=== PATIENT | female | born 1950 ===

== ENCOUNTER 2017-04-20 14:29 | Emergency (ER) | payer SELFPAY ==
[2017-04-20 14:38] VITALS: BP 149/73; PULSE 71; RESP 16; TEMP 98; O2SAT 97
--- NOTE | 2017-04-20 15:21 | ED PDOC ---
HPI: General Adult Time Seen by Provider: 04/20/17 14:38 Chief Complaint (Nursing): Back Pain Chief Complaint (Provider): Neck Pain History Per: Patient History/Exam Limitations: no limitations Onset/Duration Of Symptoms: Days (2 days ago) Current Symptoms Are (Timing): Still Present Additional Complaint(s): 67 y/o female presents to the ED complaining of right earache that radiates into her neck and head, onset of 2 days. She reports of similar symptoms when she was diagnosed with an ear infection in the past. She also states that during her visit for the ear infection, she had blood work done and was told that she was negative for diabetes. She denies hearing changes, trauma, or fever. Past Medical History Reviewed: Historical Data, Nursing Documentation, Vital Signs Vital Signs: Last Vital Signs Temp 98.0 F 04/20/17 14:35 Pulse 71 04/20/17 14:35 Resp 16 04/20/17 14:35 BP 149/73 04/20/17 14:35 Pulse Ox 97 04/20/17 15:27 - Medical History PMH: No Chronic Diseases Denies: Diabetes - Surgical History Surgical History: No Surg Hx - Family History Family History: States: Unknown Family Hx - Social History Current smoker - smoking cessation education provided: No Ex-Smoker (has not smoked in the last 12 months): No Alcohol: None Drugs: Denies - Home Medications Home Medications: Ambulatory Orders Medication Instructions Recorded Nitrofurantoin Macrocrystals 100 mg PO BID #14 cap 06/18/16 [Macrobid] Omeprazole Magnesium [Prilosec Otc] 20 mg PO DAILY 06/18/16 Ondansetron [Zofran] 4 mg PO Q6H PRN #10 tab 06/18/16 Ciprofloxacin/Dexamethasone 4 drop AD BID #1 bottle 04/20/17 [Ciprodex 0.3%-0.1% 7.5 Ml] Naproxen [Naprosyn] 500 mg PO BID PRN #10 tab 04/20/17 - Allergies Allergies/Adverse Reactions: Allergies Allergy/AdvReac Type Severity Reaction Status Date / Time No Known Allergies Allergy Verified 06/18/16 20:01 Review of Systems ROS Statement: Except As Marked, All Systems Reviewed And Found Negative Constitutional: Negative for: Fever ENT: Positive for: Ear Pain (earache that radiates to neck and head), Other (no hearing changes) Physical Exam - Reviewed Nursing Documentation Reviewed: Yes Vital Signs Reviewed: Yes - Physical Exam ENT: Positive for: Normal ENT Inspection, TM Is/Are (non erythematous bilaterally, non bulging bilaterally), Other (right ear canal is erythematous, minimal edema, ). Negative for: Tonsillar Exudate - ECG O2 Sat by Pulse Oximetry: 97 (RA) Pulse Ox Interpretation: Normal Medical Decision Making Medical Decision Making: Time: --14:40 Impression: --Otitis Externa Plan: --send patient home with prescriptions for ear pain Reassess --14:55 Patient is stable for discharge home. Scribe Attestation: Documented by Alvin Rodriguez acting as a scribe for LEATHA Woodward. Disposition - Clinical Impression Clinical Impression: Otitis externa - Patient ED Disposition Is Patient to be Admitted: No - Disposition Disposition: Routine/Home Disposition Time: 14:55 Condition: STABLE Prescriptions: Ciprofloxacin/Dexamethasone [Ciprodex 0.3%-0.1% 7.5 Ml] 4 drop AD BID #1 bottle Naproxen [Naprosyn] 500 mg PO BID PRN #10 tab PRN Reason: Pain Instructions: Otitis Externa (ED) Forms: [employer] (Kenyan) Print Language: [place]
== END 2017-04-20 15:07 | disposition home or self-care (01) ==
LOC: H.ER 14:29
DX: H60.92 Unspecified otitis externa, left ear (principal)

== ENCOUNTER 2018-06-28 11:12 | Emergency (ER) | payer OTHER, SELFPAY ==
[2018-06-28 11:22] VITALS: BMI 34.0
[2018-06-28 11:23] VITALS: BP 153/88; PULSE 72; RESP 18; TEMP 98.3; O2SAT 100
--- NOTE | 2018-06-28 13:38 | ED PDOC ---
Lower Extremity Pain/Injury Time Seen by Provider: 06/28/18 12:19 Chief Complaint (Nursing): Lower Extremity Problem/Injury Chief Complaint (Provider): Foot Pain History Per: Patient, [employer] (#[id number]) History/Exam Limitations: language barrier Onset/Duration Of Symptoms: Days (Pt presents to the ED complaining of non- traumatic foot pain that has been persistent for greater than one month duration and is progressing to make it more difficult to place weight on the foot. The patient denies other injury or complaints as well as any chronic medical condition. ) Current Symptoms Are (Timing): Still Present Severity: Mild Past Medical History Vital Signs: Last Vital Signs Temp 98.3 F 06/28/18 11:22 Pulse 72 06/28/18 11:22 Resp 18 06/28/18 11:22 BP 153/88 H 06/28/18 11:22 Pulse Ox 100 06/28/18 11:22 - Medical History PMH: Denies: Diabetes - Family History Family History: States: Unknown Family Hx - Home Medications Home Medications: Ambulatory Orders Medication Instructions Recorded Nitrofurantoin Macrocrystals 100 mg PO BID #14 cap 06/18/16 [Macrobid] Omeprazole Magnesium [Prilosec Otc] 20 mg PO DAILY 06/18/16 Ondansetron [Zofran] 4 mg PO Q6H PRN #10 tab 06/18/16 Ciprofloxacin/Dexamethasone 4 drop AD BID #1 bottle 04/20/17 [Ciprodex 0.3%-0.1% 7.5 Ml] Naproxen [Naprosyn] 500 mg PO BID PRN #10 tab 04/20/17 Diclofenac Potassium 50 mg PO BID #20 tablet 06/28/18 - Allergies Allergies/Adverse Reactions: Allergies Allergy/AdvReac Type Severity Reaction Status Date / Time No Known Allergies Allergy Verified 06/28/18 12:14 Review of Systems ROS Statement: Except As Marked, All Systems Reviewed And Found Negative Musculoskeletal: Positive for: Foot Pain Physical Exam - Reviewed Nursing Documentation Reviewed: Yes Vital Signs Reviewed: Yes - Physical Exam Appears: Positive for: Well, Non-toxic, No Acute Distress. Negative for: Uncomfortable Head Exam: Positive for: ATRAUMATIC, NORMAL INSPECTION Skin: Positive for: Normal Color, Warm, Dry. Negative for: Diaphoresis, Pallor, Rash Eye Exam: Positive for: Normal appearance, PERRL. Negative for: Nystagmus, Periorbital swelling, Periorbital tenderness Cardiovascular/Chest: Positive for: Regular Rate, Rhythm Respiratory: Positive for: Normal Breath Sounds Pulses-Post. Tibialis (L): 2+ Pulses-Post. Tibialis (R): 2+ Extremity: Positive for: Normal ROM, Tenderness (to palpation on the right foot, lateral calcaneus), Capillary Refill (<2 seconds in all distal extremities). Negative for: Pedal Edema, Calf Tenderness, Deformity, Swelling Neurological/Psych: Positive for: Awake, Alert - ECG O2 Sat by Pulse Oximetry: 100 Medical Decision Making Medical Decision Making: I: spur vs plantar fascititis P: XR foot Date of service: 06/28/2018 PROCEDURE: Bilateral Feet Radiographs. HISTORY: Bilateral foot pain. No history of trauma provided COMPARISON: 09/07/2010 left foot radiographs FINDINGS: BONES: Right Foot: Small plantar calcaneal spur. Left Foot: Stable plantar calcaneal spur. JOINTS: Right Foot: Normal. No osteoarthritis. Left Foot: Normal. No osteoarthritis. SOFT TISSUES: Right Foot: Normal. Left Foot: Normal. OTHER FINDINGS: None. IMPRESSION: No acute findings related to/ accounting for the clinical presentation. Pt will be given an NSAID and referred to podiatry Disposition - Clinical Impression Clinical Impression: Heel spur - Patient ED Disposition Is Patient to be Admitted: No Counseled Patient/Family Regarding: Diagnosis, Need For Followup, Rx Given - Disposition Referrals: Harman Thompson MD [Staff Provider] - Disposition Time: 16:03 Condition: STABLE Prescriptions: Diclofenac Potassium 50 mg PO BID #20 tablet Instructions: Heel Spurs, Heel Spurs (DC) Forms: [employer] (Korean)
--- NOTE | 2018-06-28 15:52 | RAD ---
Date of service: 06/28/2018 PROCEDURE: Bilateral Feet Radiographs. HISTORY: Bilateral foot pain. No history of trauma provided COMPARISON: 09/07/2010 left foot radiographs FINDINGS: BONES: Right Foot: Small plantar calcaneal spur. Left Foot: Stable plantar calcaneal spur. JOINTS: Right Foot: Normal. No osteoarthritis. Left Foot: Normal. No osteoarthritis. SOFT TISSUES: Right Foot: Normal. Left Foot: Normal. OTHER FINDINGS: None. IMPRESSION: No acute findings related to/ accounting for the clinical presentation.
== END 2018-06-28 16:13 | disposition home or self-care (01) ==
LOC: H.ER 11:12
DX: M77.30 Calcaneal spur, unspecified foot (principal)